=== PATIENT | male | born 1955 | race Two or more races ===

== ENCOUNTER 2025-02-20 13:51 | Outpatient (AMB) | payer OTHER, SELFPAY ==
--- NOTE | 2025-02-20 13:54 | MHC.PC.OV ---
Vital Signs 02/20/25 14:08 BP 112/72 Blood Pressure Location Lt brachial Position Supine Pulse 74 Pulse Source Pulse Oximeter Pulse Oximetry (%) 94 Oxygen Delivery Method Room Air Intake Visit Reasons: *bed ridden -Ulcer Energy Efficiency Finance Manager Name: Provider speaks Polish Allergies No Known Allergies Allergy (Verified 02/20/25 13:54) Medication List - Last Reconciled 02/23/25 by Yoel Menjivar MD acetaminophen (M-PAP) 624 mg feeding tube Q4H PRN amlodipine 10 mg PO DAILY apixaban (Eliquis) 5 mg PO BID atorvastatin 40 mg PO BEDTIME bisacodyl 10 mg [place] DAILY PRN lactose-reduced food with fibr 0.06 gram-1.5 kcal/mL (Jevity 1.5 Abdi) 1 ea feeding tube TID-QID losartan 25 mg feeding tube DAILY metoprolol tartrate 50 mg feeding tube BID pantoprazole 40 mg PO DAILY potassium chloride (Klor-Con) mEq PO Tobacco use date assessed: 02/20/25 Fall risk assessment: No Falls in past year Last assessed Fall Risk: 02/20/25 Dental Screening Dental Screen Date: 02/20/25 Did you have a dental visit in the last 12 months?: No HPI HPI Comments History of Present Illness Details History of Present Illness The patient is a 69 year old male presenting for an initial home visit for management of chronic conditions post-stroke. Cerebrovascular accident: The patient suffered a stroke on October 09, 2024, and was hospitalized. During his hospitalization, he was in the ICU, intubated, and had a tracheostomy placed. He was discharged home without any short-term or long-term therapy. Currently, he is bed-bound, non-verbal, and communicates pain by moving. Stage 4 gluteal pressure ulcer: The patient developed a bed sore while in the hospital. He is turned every two hours at home to prevent further skin breakdown. Hypertension: The patient has a history of hypertension, for which he takes Amlodipine 10 mg, losartan 25 mg, and metoprolol. Hypercholesterolemia: The patient has a history of high cholesterol. Arthritis of the hip: The patient has a history of arthritis in the hip, which causes him pain. Surgical History: - Tracheostomy Medications: - Apixaban (Eliquis) twice a day for stroke prophylaxis - Amlodipine 10 mg for hypertension - Losartan 25 mg for hypertension - Metoprolol for hypertension - Pantoprazole - Potassium Social History: - Alcohol use: The patient used to drink more than 12 beers on weekends. - Tobacco use: Denies smoking. - Illicit drug use: Denies. - Functional status: The patient is bed-bound and non-verbal. Past Medical History - Cerebrovascular accident on October 09, 2024, requiring ICU admission and intubation. - Hypertension - Hypercholesterolemia - Hip arthritis - Pressure ulcer developed during hospitalization. - History of being followed by a special programs director. Health Maintenance [facility] Medical History (Updated 02/23/25 @ 09:02 by Yoel Menjivar MD) History of alcohol consumption Tracheostomy care Arthritis of hip Hypercholesterolemia Hypertension Decubitus ulcer of buttock, stage 4 Aphasia due to acute cerebrovascular accident (CVA) CVA (cerebral vascular accident) Feeding by G-tube Surgical History (Updated 02/23/25 @ 09:02 by Yoel Menjivar MD) History of creation of ostomy Family History (Updated 02/20/25 @ 13:56 by Sara Luther CMA) Mother No problems noted. Father No problems noted. Social History Housing: House Patient Tobacco Use Status: Never used Tobacco e-Cigarette/Vaping Use: Never Used service: No Current occupational status: disabled Cognitive needs: Yes (bed bound) Hearing needs: No Vision needs: No Questionnaire PHQ-9 Over the last 2 weeks, how often have you been bothered by any of the following problems? 1. Little interest or pleasure in doing things: several days 2. Feeling down, depressed, or hopeless: several days 3. Trouble falling or staying asleep, or sleeping too much: more than half the days 4. Feeling tired or having little energy: several days 5. Poor appetite or overeating: not at all 6. Feeling bad about yourself - or that you are a failure or have let yourself or your family down: not at all 7. Trouble concentrating on things, such as reading the newspaper or watching television: not at all 8. Moving or speaking so slowly that other people could have noticed. Or the opposite - being so fidgety or restless that you have been moving around a lot more than usual: nearly every day 9. Thoughts that you would be better off or of hurting yourself in some way: not at all Total score: 8 Depression Screening Interpretation: Positive Depression Screening Done: Yes Source: Developed by Drs. Matheus Messina, Estefany Rossi, Brandyn Hunt and colleagues, with an educational estrella from [employer]. Thrive Questionnaire Date Thrive assessed: 02/20/25 I am a: Parent/Caregiver What is your living situation today?: I have a steady place to live Within the past 12 months, did the food you bought not last and you didn't have the money to get more?: Never true Within the past 12 months, did you worry whether your food would run out before you got money to buy more?: Never true Do you have trouble paying for medicines?: No Do you have trouble getting transportation to medical appointments?: Yes Do you have trouble paying your heating and electricity bill?: No Do you have trouble taking care of your child, family member or friend?: No Do you have trouble with day-to-day activities such as bathing, preparing meals, shopping, managing finances, etc.?: Yes Are you currently unemployed and looking for a job?: No Are you interested in more education?: No Currently or been in a relationship where the following occur: No concerns reported THRIVE Score: 1 AUDIT C Alcohol Use Questionnaire (AUDIT-C) 1. How often do you have a drink containing alcohol?: Never Total Score: 0 WAYNE-7 AMB Questionnaire WAYNE-7 Date WAYNE - 7 assessed: 02/20/25 Feeling nervous, anxious, or on edge: 0 = Not at all Not being able to stop or control worryin = Not at all Worrying too much about different things: 0 = Not at all Trouble relaxin = Not at all Being so restless that it is hard to sit still: 0 = Not at all Becoming easily annoyed or irritable: 0 = Not at all Feeling afraid as if something awful might happen: 0 = Not at all Total WAYNE-7 score (0-4 normal; 5-9 mild; 10-14 moderate; 15-21 severe): 0 Source: Developed by Estefany Alcaraz Kurt Kroenke and colleagues, with an educational estrella from [employer] Review of Systems Narrative Review of Systems - Neurological: He is non-verbal but attempts to communicate. - Musculoskeletal: Reports pain in the elbow and hip due to arthritis, which he expresses through movement. 10-point ROS reviewed and negative except as noted in HPI Physical exam (Primary Care) Vital Signs: Last Vital Signs Pulse 74 02/20/25 14:08 BP 112/72 02/20/25 14:08 Pulse Ox 94 02/20/25 14:08 Oxygen Delivery Method Room Air 02/20/25 14:08 Tobacco/Smoking Status: Tobacco use Status Tobacco use date assessed 02/20/25 02/20/25 13:57 Patient Tobacco Use Status Never used Tobacco 02/20/25 13:57 e-Cigarette/Vaping Use Never Used 02/20/25 14:06 PHQ-9: PHQ-9 Score PHQ-9: Total score 8 02/22/25 16:22 Depression Screening Interpretation: Positive Thrive Assessment: Date of Thrive Assessment Date Thrive assessed 02/20/25 02/22/25 16:22 Currently or been in a relationship where the following occur: No concerns reported Narrative Physical Exam General: pt is in gurney in mild distress bed bound Vital signs: Within normal limits. HEENT: Normocephalic, atraumatic. PERRLA, EOMI. Conjunctiva clear, sclera anicteric. Oropharynx clear, mucous membranes moist. TMs intact bilaterally. Neck: Healed tracheostomy stoma present without appliance. Stoma clean, dry, and intact with healthy surrounding skin. No erythema, edema, induration, drainage, granulation tissue, bleeding, or signs of infection. Airway patent Supple, no lymphadenopathy, no thyromegaly, no JVD or carotid bruits. Cardiovascular: RRR, normal S1/S2, no murmurs, rubs, or gallops. Peripheral pulses 2+ and symmetric. No edema. Respiratory: Lungs clear to auscultation bilaterally, no wheezes, rales, or rhonchi. Normal effort. Abdomen: Jejunostomy tube in place, well secured. Insertion site clean, dry, and intact with healthy surrounding skin. No erythema, warmth, induration, tenderness, leakage, bleeding, granulation tissue, or purulent drainage. Tube patent and functioning without complication. Abdomen soft, non-distended, non-tender Normoactive bowel sounds. No hepatosplenomegaly, no masses. MSK: No joint swelling or deformity. . Skin: Stage IV decubitus ulcer with full-thickness tissue loss and exposed muscle/fascia on right gluteus. Wound bed partially granulated with areas of necrotic tissue and slough. Undermining present. Periwound erythema and maceration noted. Moderate serosanguinous drainage; no raya purulence or crepitus Neuro: .Patient nonverbal; produces incomprehensible sounds and grunts, unable to follow verbal commands. Mental status assessment limited by aphasia. Cranial nerves unable to be fully assessed. Motor exam notable for no voluntary movement of bilateral upper extremities. Lower extremities with limited movement at the knees; able to flex knees but unable to elevate legs against gravity. No purposeful movement of arms or legs. Sensory exam unable to be reliably assessed. Reflexes not assessed. Patient bed bound Psych: cannot be assesed due to his aphasia Coding Level of Care Code New Pt Level 4 (45979) Add On Problem Visit Only Diagnoses CVA (cerebral vascular accident) I63.9 Aphasia due to acute cerebrovascular accident (CVA) I63.9; R47.01 History of creation of ostomy Z98.890 Decubitus ulcer of buttock, stage 4 L89.304 Hypertension I10 Hypercholesterolemia E78.00 Arthritis of hip M16.10 Tracheostomy care Z43.0 History of alcohol consumption Z87.898 Feeding by G-tube Z93.1 Assessment & Plan Assessment & Plan (1) CVA (cerebral vascular accident): Code(s): I63.9 - Cerebral infarction, unspecified Category: Medical (2) Aphasia due to acute cerebrovascular accident (CVA): Code(s): I63.9 - Cerebral infarction, unspecified; R47.01 - Aphasia Category: Medical (3) History of creation of ostomy: Code(s): Z98.890 - Other specified postprocedural states Category: Surgical (4) Decubitus ulcer of buttock, stage 4: Code(s): L89.304 - Pressure ulcer of unspecified buttock, stage 4 Category: Medical (5) Hypertension: Code(s): I10 - Essential (primary) hypertension Category: Medical (6) Hypercholesterolemia: Code(s): E78.00 - Pure hypercholesterolemia, unspecified Category: Medical (7) Arthritis of hip: Code(s): M16.10 - Unilateral primary osteoarthritis, unspecified hip Category: Medical (8) Tracheostomy care: Code(s): Z43.0 - Encounter for attention to tracheostomy Category: Medical (9) History of alcohol consumption: Code(s): Z87.898 - Personal history of other specified conditions Category: Medical (10) Feeding by G-tube: Code(s): Z93.1 - Gastrostomy status Category: Medical Plan Consent Patient was informed and verbally consented to the use of an ambient scribe for clinic note documentation during this visit. Plan 1. Cerebrovascular Accident - Will order a CBC to assess white and red blood cell counts, hemoglobin, and platelets. - Will order a comprehensive metabolic panel to evaluate kidney and liver function, proteins, and albumin. - Will order labs for hemoglobin A1c, lipid panel, vitamin B12, folate, vitamin D, thyroid function, urinalysis, Hepatitis B and C, and HIV. - Will order nursing services for home visits. - Will arrange for a community nurse navigator to connect the family with resources. - The patient will continue his current medications, including apixaban, amlodipine, losartan, metoprolol, and pantoprazole. 2. Stage 4 Gluteal Pressure Ulcer - A referral will be placed for wound care services to manage the stage 4 gluteal ulcer. - The family is advised to continue repositioning the patient every 2 hours and continue at home wound care. Discussion Notes I had a discussion with the patient's family regarding his current condition. I explained that I will order a series of comprehensive blood tests to get a baseline of his overall health, including a CBC, metabolic panel, hemoglobin A1c, lipid panel, vitamin levels, thyroid function, and infectious disease screening. We discussed the severity of his gluteal ulcer, which I assessed as a stage 4 wound, and I informed them that I will place an immediate referral to a graphics specialist. I also arranged for home nursing services and a community nurse navigator to provide support and connect the family with necessary resources. Patient Instructions - Continue giving the patient his current medications as prescribed. - Continue to move and turn the patient every 2 hours to prevent more bed sores. - A graphics specialist will be in contact to care for the sore on his backside. - A nurse will come to the home to draw blood for tests. - Home nursing services and a community nurse navigator will be arranged to provide support. Medical Decision Making The patient is a 69-year-old male with a history of a significant stroke, now presenting as a new patient for home-based care. He is chronically debilitated, bed-bound, and non-verbal following his CVA. A casiano finding from my physical examination is a stage 4 gluteal pressure ulcer, which requires immediate specialized intervention. My immediate plan is to address this critical issue by referring him to wound care services. To establish a comprehensive understanding of his current health status, I have ordered a full panel of labs, including a CBC, CMP, HbA1c, lipid panel, and various vitamin and infectious disease screenings. These results will guide the management of his chronic conditions like hypertension and hypercholesterolemia, and assess his nutritional and metabolic state, which is crucial given his immobility and pressure ulcer. To support the family and ensure proper care at home, I am arranging for home nursing services and a community nurse navigator to provide resources and assistance. Continuity of his current medication regimen, which includes anticoagulation and antihypertensives, is essential. Total Time Statement 45 min Total time spent caring for the patient today includes pre-visit chart review, documentation, review of laboratory and diagnostic imaging results, medication reconciliation, medically necessary evaluation, counseling on diagnoses, care coordination, ordering appropriate tests and medications, review of tests performed by other providers, reporting test results to the patient, and communication with other healthcare providers. Orders: Orders Syphilis Screen 02/20/25 Z. - Encounter for screening, unspecified Comprehensive Met. Panel 02/20/25 Z13. - Encounter for screening, unspecified Hepatitis C Antibody 02/20/25 Z13. - Encounter for screening, unspecified Lipid Panel 02/20/25 Z13. - Encounter for screening, unspecified Magnesium 02/20/25 Z13.9 - Encounter for screening, unspecified Hepatitis B Surface Antibody 02/20/25 Z13. - Encounter for screening, unspecified Vitamin D 25-OH (D2 and D3) 02/20/25 Z13. - Encounter for screening, unspecified Vitamin B1 02/20/25 Z13. - Encounter for screening, unspecified Microalbumin, Random (w Creat) 02/22/25 Z13. - Encounter for screening, unspecified Influenza [id number] Immunization 02/20/25 Z23 - Encounter for immunization Complete Blood Count Auto Diff 02/20/25 Z13.9 - Encounter for screening, unspecified Hepatitis B Surface Antigen 02/20/25 Z13.9 - Encounter for screening, unspecified TSH reflex Free T4 02/20/25 Z13. - Encounter for screening, unspecified HIV Ab/Ag 02/20/25 Z13. - Encounter for screening, unspecified UA CC w/rflx Micro + Cult 02/22/25 Z13. - Encounter for screening, unspecified Vitamin B12 and Folate 02/20/25 Z13. - Encounter for screening, unspecified Hemoglobin A1c 02/20/25 Z13.9 - Encounter for screening, unspecified Medications: New Fluarix [id number] (PF) (flu vac ts (6mos up)-PF) 0.5 mL IM ONCE 0.5 mL 0RF NS Z23 - Encounter for immunization
[2025-02-20 14:08] VITALS: BP 112/72; PULSE 74; O2SAT 94
--- OUTSIDE RECORDS SUMMARY | 2025-02-20 21:28 | XMS_ITS | Encounter Summary ---
Author Organization [facility] Address [address] [place] [address] Care Team Providers Care Boom Conveyor Operator Name Role Phone Emam Hernandes MD Primary Care Provider [phone] Encounter Details Date Type Department Care Team (Late Contact Info) Description 01/15/2025 Telephone Adult Medicine [facility] [address], [place] [phone] Emma Hernandes MD [address] [place], [place] Social History Tobacco Use Types Packs/Day Years Used Date Smoking Tobacco: Never Assessed Sex and Gender Information Value Date Recorded Sex Assigned at Not on file Legal Sex Male 3:37 PM EST Gender Identity Not on file Sexual Orientation Not on file documented as of this encounter Plan of Treatment Upcoming Encounters Date Type Department Care Team (Late Contact Info) Description 08/29/2025 11:00 AM EDT Office Visit Adult Medicine [facility] [address], [place] [phone] Emma Hernandes MD [address] [place], [place] documented as of this encounter Visit Diagnoses Not on filedocumented in this encounter Care Teams Boom Conveyor Operator Relationship Specialty Start Date End Date Emma Hernandes MD [address] [place] PCP - General Internal Medicine 01/15/25 documented as of this encounter
--- OUTSIDE RECORDS SUMMARY | 2025-02-20 21:28 | XMS_ITS | Clinical Summary ---
Author Organization [facility] [address] [facility] Address [address], [place] Phone Care Team Providers Care Healthcare Business Analyst Name Role Phone Emma Hernandes MD Primary Care Provider Encounters Date Type Department Care Team Description 01/15/2025 Telephone Adult [address] [phone] Emma Hernandes MD from Last 3 Months Social History Tobacco Use Types Packs/Day Years Used Date Smoking Tobacco: Never Assessed Sex and Gender Information Value Date Recorded Sex Assigned at Not on file Legal Sex Male 3:37 PM EST Gender Identity Not on file Sexual Orientation Not on file Plan of Treatment Upcoming Encounters Date Type Department Care Team (Late st Contact Info) Description 08/29/2025 11:00 AM EDT Office Visit Adult [address] [phone] Emma Hernandes MD [address] [place], [place] Health Maintenance Due Date Last Done Comments Colorectal Cancer Screening: Colonoscopy 1955 DTaP,Tdap,and Td Vaccines (1 - Tdap) 1976 Pneumococcal Vaccine: 50+ Ye ars (1 of 1 - PCV) 11/29/2007 Zoster Vaccines (1 of 2) 11/29/2007 Depression Screening 03/14/2024 COVID-19 Vaccine (1 - 2024-2 6 season) 2024 Influenza Vaccine (#1) 2024 Cholesterol Screening (Lipid Panel) 01/15/2025 Falls Risk Assessment 01/15/2025 Hepatitis C Screening 01/15/2025 Medicare Annual Wellness Visit 01/15/2025 Social Influencers of Health Screening 01/15/2025 RSV Immunization Adult Patie nts (1 - 1-dose 75+ series) 2032 HIB Vaccines Aged Out No longer eligi ble based on patient's age to complete this topic HPV Vaccines Aged Out No longer eligi ble based on patient's age to complete this topic Hepatitis A Vaccines Aged Out No long er eligible based on patient's age to complete this topic Hepatitis B Vaccines Aged Out No long er eligible based on patient's age to complete this topic IPV Vaccines Aged Out No longer eligi ble based on patient's age to complete this topic MMR Vaccines Aged Out No longer eligi ble based on patient's age to complete this topic Meningococcal ACWY Vaccine Aged Out N o longer eligible based on patient's age to complete this topic Meningococcal B Vaccine Aged Out No l onger eligible based on patient's age to complete this topic RSV Immunization Patients Un juliana 20 months Aged Out No longer eligible b ased on patient's age to complete this topic Varicella Vaccines Aged Out No longer eligible based on patient's age to complete this topic Insurance [employer] MEDICARE Care Teams Healthcare Business Analyst Relationship Specialty Start Date End Date Emma Hernandes MD [address] [facility] [place] [address] PCP - General Internal Medicine 01/15/25
--- NOTE | 2025-02-21 11:36 | A.OFFVIS_ITS ---
Intake Vital Signs 02/20/25 14:08 BP 112/72 Blood Pressure Location Lt brachial Position Supine Pulse 74 Pulse Source Pulse Oximeter Pulse Oximetry (%) 94 Oxygen Delivery Method Room Air Intake Visit Reasons: *bed ridden -Ulcer Allergies No Known Allergies Allergy (Verified 02/20/25 13:54) [facility] Medical History (Updated 02/21/25 @ 13:58 by Yoel Menjivar MD) Feeding by G-tube Family History (Updated 02/20/25 @ 13:56 by Sara Luther CMA) Mother No problems noted. Father No problems noted. Social History Housing: House Patient Tobacco Use Status: Never used Tobacco e-Cigarette/Vaping Use: Never Used service: No Current occupational status: disabled Cognitive needs: Yes (bed bound) Hearing needs: No Vision needs: No Questionnaires Thrive Questionnaire Date Thrive assessed: 02/20/25 I am a: Parent/Caregiver What is your living situation today?: I have a steady place to live Within the past 12 months, did the food you bought not last and you didn't have the money to get more?: Never true Within the past 12 months, did you worry whether your food would run out before you got money to buy more?: Never true Do you have trouble paying for medicines?: No Do you have trouble getting transportation to medical appointments?: Yes Do you have trouble paying your heating and electricity bill?: No Do you have trouble taking care of your child, family member or friend?: No Do you have trouble with day-to-day activities such as bathing, preparing meals, shopping, managing finances, etc.?: Yes Are you currently unemployed and looking for a job?: No Are you interested in more education?: No Currently or been in a relationship where the following occur: No concerns reported THRIVE Score: 1 AUDIT C Alcohol Use Questionnaire (AUDIT-C) 1. How often do you have a drink containing alcohol?: Never Total Score: 0 Coding Assessment & Plan Assessment & Plan Orders: Orders Syphilis Screen 02/20/25 Z13.9 - Encounter for screening, unspecified Comprehensive Met. Panel 02/20/25 Z13.9 - Encounter for screening, unspecified Hepatitis C Antibody 02/20/25 Z13.9 - Encounter for screening, unspecified Lipid Panel 02/20/25 Z13.9 - Encounter for screening, unspecified Magnesium 02/20/25 Z13.9 - Encounter for screening, unspecified Hepatitis B Surface Antibody 02/20/25 Z13.9 - Encounter for screening, unspecified Vitamin D 25-OH (D2 and D3) 02/20/25 Z13.9 - Encounter for screening, unspecified Vitamin B1 02/20/25 Z13.9 - Encounter for screening, unspecified Microalbumin, Random (w Creat) 02/20/25 Z13.9 - Encounter for screening, unspecified Influenza Immunization 02/20/25 Z23 - Encounter for immunization Complete Blood Count Auto Diff 02/20/25 Z13.9 - Encounter for screening, unspecified Hepatitis B Surface Antigen 02/20/25 Z13.9 - Encounter for screening, unspecified TSH reflex Free T4 02/20/25 Z13.9 - Encounter for screening, unspecified HIV Ab/Ag 02/20/25 Z13.9 - Encounter for screening, unspecified UA CC w/rflx Micro + Cult 02/20/25 Z13.9 - Encounter for screening, unspecified Vitamin B12 and Folate 02/20/25 Z13.9 - Encounter for screening, unspecified Hemoglobin A1c 02/20/25 Z13.9 - Encounter for screening, unspecified Medications: New Fluarix [id number] (PF) (flu vac ts (6mos up)-PF) 0.5 mL IM ONCE 0.5 mL 0RF NS Z23 - Encounter for immunization
--- NOTE | 2025-02-22 16:22 | MHC.COMNAV ---
Intake Vital Signs 02/20/25 14:08 BP 112/72 Blood Pressure Location Lt brachial Position Supine Pulse 74 Pulse Source Pulse Oximeter Pulse Oximetry (%) 94 Oxygen Delivery Method Room Air Intake Visit Reasons: *bed ridden -Ulcer Allergies No Known Allergies Allergy (Verified 02/20/25 13:54) Medication List - Last Reconciled 02/23/25 by Yoel Menjivar MD acetaminophen (M-PAP) 624 mg feeding tube Q4H PRN amlodipine 10 mg PO DAILY apixaban (Eliquis) 5 mg PO BID atorvastatin 40 mg PO BEDTIME bisacodyl 10 mg [place] DAILY PRN lactose-reduced food with fibr 0.06 gram-1.5 kcal/mL (Jevity 1.5 Abdi) 1 ea feeding tube TID-QID losartan 25 mg feeding tube DAILY metoprolol tartrate 50 mg feeding tube BID pantoprazole 40 mg PO DAILY potassium chloride (Klor-Con) mEq PO PFSH Medical History (Updated 02/23/25 @ 09:02 by Yoel Menjivar MD) History of alcohol consumption Tracheostomy care Arthritis of hip Hypercholesterolemia Hypertension Decubitus ulcer of buttock, stage 4 Aphasia due to acute cerebrovascular accident (CVA) CVA (cerebral vascular accident) Feeding by G-tube Surgical History (Updated 02/23/25 @ 09:02 by Yoel Menjivar MD) History of creation of ostomy Family History (Updated 02/20/25 @ 13:56 by Sara Luther CMA) Mother No problems noted. Father No problems noted. Social History Housing: House Patient Tobacco Use Status: Never used Tobacco e-Cigarette/Vaping Use: Never Used service: No Current occupational status: disabled Cognitive needs: Yes (bed bound) Hearing needs: No Vision needs: No Community Navigation Community Navigation Self-care plan Self-care plan status New Taking medications as prescribed Yes Goals care coordination, continuation of therapeutic health regimen Barriers language barrier, caregiver strain Action caregivers contact through portal. followup with TC from this Nurse Navigator. discussed suction machine needs to be returned to former medical facility [facility] and JTube feedings need to be obtained [facility]. also discussed start of VNA and wound care assessment and care in home. caregivers will make appt with [facility] care as soon as referral goes in, [facility] and care. caregivers aware that suction machine and JT feeding formula and supplies as well as wound care supplies may be all from one outside company or from multiple ones. caregiver will coordinate with other caregivers for translating services as needed for all referred parties, this caregiver (Nakia=dtr to pt) often is available by [facility] with physical on-site caregivers to translate medical visits and home care needs. caregiver able to teach back what referrals are in process and will continue to assist with all caregiving calls as needed. Patient response teach back Questionnaires Thrive Questionnaire Date Thrive assessed: 02/20/25 I am a: Parent/Caregiver What is your living situation today?: I have a steady place to live Within the past 12 months, did the food you bought not last and you didn't have the money to get more?: Never true Within the past 12 months, did you worry whether your food would run out before you got money to buy more?: Never true Do you have trouble paying for medicines?: No Do you have trouble getting transportation to medical appointments?: Yes Do you have trouble paying your heating and electricity bill?: No Do you have trouble taking care of your child, family member or friend?: No Do you have trouble with day-to-day activities such as bathing, preparing meals, shopping, managing finances, etc.?: Yes Are you currently unemployed and looking for a job?: No Are you interested in more education?: No Currently or been in a relationship where the following occur: No concerns reported THRIVE Score: 1 AUDIT C Alcohol Use Questionnaire (AUDIT-C) 1. How often do you have a drink containing alcohol?: Never Total Score: 0 Coding Level of Care Code Procedure Only Assessment & Plan Assessment & Plan Orders: Orders Syphilis Screen 02/20/25 Z13. - Encounter for screening, unspecified Comprehensive Met. Panel 02/20/25 Z13. - Encounter for screening, unspecified Hepatitis C Antibody 02/20/25 Z13. - Encounter for screening, unspecified Lipid Panel 02/20/25 Z13. - Encounter for screening, unspecified Magnesium 02/20/25 Z13. - Encounter for screening, unspecified Hepatitis B Surface Antibody 02/20/25 Z13. - Encounter for screening, unspecified Vitamin D 25-OH (D2 and D3) 02/20/25 Z13.9 - Encounter for screening, unspecified Vitamin B1 02/20/25 Z13.9 - Encounter for screening, unspecified Microalbumin, Random (w Creat) 02/22/25 Z13.9 - Encounter for screening, unspecified Influenza Immunization 02/20/25 Z23 - Encounter for immunization Complete Blood Count Auto Diff 02/20/25 Z13.9 - Encounter for screening, unspecified Hepatitis B Surface Antigen 02/20/25 Z13.9 - Encounter for screening, unspecified TSH reflex Free T4 02/20/25 Z13.9 - Encounter for screening, unspecified HIV Ab/Ag 02/20/25 Z13.9 - Encounter for screening, unspecified UA CC w/rflx Micro + Cult 02/22/25 Z13.9 - Encounter for screening, unspecified Vitamin B12 and Folate 02/20/25 Z13.9 - Encounter for screening, unspecified Hemoglobin A1c 02/20/25 Z13.9 - Encounter for screening, unspecified Medications: New Fluarix [id number] (PF) (flu vac ts (6mos up)-PF) 0.5 mL IM ONCE 0.5 mL 0RF NS Z23 - Encounter for immunization
== END 2025-02-20 15:17 | disposition home or self-care (01) ==
LOC: HO.HMCFMS 13:51
PROVIDERS: PCP Student in an Organized Health Care Education/Training Program; Visit Provider Student in an Organized Health Care Education/Training Program
DX: I63.9 Cerebral infarction, unspecified (principal); L89.304 Pressure ulcer of unspecified buttock, stage 4; Z93.1 Gastrostomy status; I10 Essential (primary) hypertension; R47.01 Aphasia; E78.00 Pure hypercholesterolemia, unspecified; M16.10 Unilateral primary osteoarthritis, unspecified hip; Z87.898 Personal history of other specified conditions

== ENCOUNTER 2025-02-22 09:10 | Outpatient (REF) | payer MEDICARE, MEDICAID, SELFPAY ==
[2025-02-22 14:19] LABS: Appearance Urine Clear; Glucose Urine UA Negative (Negative); PH 6.5 (5.0-9.0); Specific Gravity - Urine 1.010 (1.005-1.025)
[2025-02-22 15:03] LABS: Microalbum/Creatinine Ratio Ur 18.7 ug/mg cr (<30)
== END 2025-02-22 09:11 | disposition home or self-care (01) ==
LOC: HO.HKASLDS 09:10
PROVIDERS: PCP Student in an Organized Health Care Education/Training Program; Visit Provider Student in an Organized Health Care Education/Training Program
DX: Z13.89 Encounter for screening for other disorder (principal)
CPT/HCPCS: 81003; 82043; 82570

== ENCOUNTER → 2025-03-11 14:00 | Outpatient (BNVA) | payer MEDICARE, MEDICAID, SELFPAY | PROVIDERS: PCP Student in an Organized Health Care Education/Training Program | DX: Z74.1 Need for assistance with personal care (principal); I69.320 Aphasia following cerebral infarction; I10 Essential (primary) hypertension; L89.314 Pressure ulcer of right buttock, stage 4; Z60.3 Acculturation difficulty; Z43.0 Encounter for attention to tracheostomy; Z43.1 Encounter for attention to gastrostomy; Z74.01 Bed confinement status; Z99.89 Dependence on other enabling machines and devices | CPT/HCPCS: 99211 ==